=== PATIENT | female | born 1970 | race American Indian/Alaskan Native ===

== ENCOUNTER 2017-08-23 18:04 | Inpatient (IN) | payer BC, OTHER ==
[~2017-08-23] VITALS: Ht 177.8 cm; Wt 133.6 kg
[~2017-08-23 18:04] MED LIST: CARI350T PO; DOCU100C40 PO; HYDR-569 PO; HYDR12.522 PO; NAPR-56 PO; NITR100C11 PO; TELM40TA4 PO
[2017-08-23 19:45] LABS: BASOPHILS % (AUTO) 0.3 % (0-1); EOSINOPHILS # (AUTO) 0.3 X10'3 (0-0.9); EOSINOPHILS % (AUTO) 2.8 % (0-6); HEMATOCRIT 48.5 % (35.0-45.0); HEMOGLOBIN 16.7 g/dl (12.0-16.0); LYMPHOCYTES # (AUTO) 3.1 X10'3 (1.1-4.8); MEAN CORPUSCULAR HEMOGLOBIN 31.2 PG (27.0-31.0); MEAN CORPUSCULAR HGB CONC 34.4 % (33.0-36.5); MEAN CORPUSCULAR VOLUME 90.8 FL (78-98); MEAN PLATELET VOLUME 7.6 FL (7.4-10.4); MONOCYTES # (AUTO) 0.8 X10'3 (0-0.9); MONOCYTES % (AUTO) 6.9 % (2-12); NEUTROPHILS # (AUTO) 6.8 X10'3 (1.8-7.7); PLATELET COUNT 360 X10'3 (140-440); RED BLOOD COUNT 5.34 X10'6 (4.20-5.60); RED CELL DISTRIBUTION WIDTH 13.4 % (11.5-14.5); WHITE BLOOD COUNT 10.9 X10'3 (4.5-11.0)
[2017-08-23 19:51] LABS: PROTHROMBIN TIME 10.1 SECONDS (9.0-12.0)
[2017-08-23 20:01] LABS: ALANINE AMINOTRANSFERASE 34 U/L (12-78); ALBUMIN 3.9 G/DL (3.4-5.0); ALKALINE PHOSPHATASE 98 IU/L (46-116); AMYLASE 28 U/L (25-115); ANION GAP 10 (8-16); ASPARTATE AMINO TRANSFERASE 24 U/L (10-37); BILIRUBIN,TOTAL 0.4 MG/DL (0.1-1.0); BLOOD UREA NITROGEN 18 MG/DL (7-18); BUN/CREATININE RATIO 21.7 (6.6-38.0); CHLORIDE 102 MMOL/L (99-107); CREATININE 0.83 MG/DL (0.40-0.90); GLUCOSE 105 MG/DL (70-104); LIPASE 85 U/L (73-393); POTASSIUM 3.3 MMOL/L (3.5-5.1); SODIUM 142 MMOL/L (135-145); TOTAL CARBON DIOXIDE 29.6 MMOL/L (24-32); TOTAL PROTEIN 7.7 G/DL (6.4-8.2); eGFR 74 ML/MIN
[2017-08-23] MEDS ORDERED: BUPR200T2 PO (20:17)
[2017-08-23] MEDS ORDERED: LOSA25TA96 PO (20:18)
[2017-08-23] MEDS ORDERED: morphine 4 MG/ML inj SYRINge IV ONE ×3 (20:35→23:45)
[2017-08-23] MEDS ORDERED: ondansetron/PF 4mg/2ml inj IV ONE (20:35)
[2017-08-24] VITALS (16 sets, daily range): BP systolic 107–153; BP diastolic 65–92
[2017-08-24] MEDS ORDERED: bisacodyl 10mg suppository rectal RC PRN (00:20)
[2017-08-24] MEDS ORDERED: potassium Cl 20 mEq SR tablet PO PRN ×2 (00:20)
[2017-08-24] MEDS ORDERED: morphine 4 MG/ML inj SYRINge IV PRN ×4 (00:20→18:40)
[2017-08-24] MEDS ORDERED: ipratropium/albuterol 3ml nebule NEB PRN (00:20)
[2017-08-24] MEDS ORDERED: acetaminophen 650mg rectal suppository RC PRN (00:20)
[2017-08-24] MEDS ORDERED: ondansetron/PF 4mg/2ml inj IV PRN ×2 (00:20→18:40)
[2017-08-24] MEDS ORDERED: magnesium 2GM in 50ml NS 50 ML IV PRN (00:20)
[2017-08-24] MEDS ORDERED: potassium Cl 40MEQ/NS 500ml 500 ML IV PRN ×2 (00:20)
[2017-08-24] MEDS ORDERED: magnesium 4gm in 100ml NS 100 ML IV PRN (00:20)
[2017-08-24 00:24] LABS: CLARITY,URINE Clear (Clear); COLOR,URINE Yellow (Yellow); GLUCOSE, URINE Negative (Neg); KETONES,URINE Negative (Neg); LEUKOCYTE ESTERASE ,URINE Trace (Neg); NITRITES, URINE Negative (Neg); OCCULT BLOOD,URINE Negative (Neg); PH,URINE 5.5 (4.8-8.0); PROTEIN,URINE Negative (Neg)
[2017-08-24 00:25] LABS: UA COLLECTION TYPE CLN CATCH MIDSTREAM
[2017-08-24 00:31] LABS: BACTERIA,URINE 3+ /HPF (Neg); MUCUS STRANDS FEW /LPF (Neg); RBC,URINE NONE SEEN /HPF (0-2); SQUAMOUS EPITHELIAL CELL,UR MODERATE /LPF (FEW)
[2017-08-24 00:32] LABS: YEAST FEW /HPF (NEGATIVE)
[2017-08-24] MEDS: piperacillin/tazo 3.375gm/50ml 50 ML IV SCH ×4 (00:46→23:48)
[2017-08-24] MEDS: normal saline 1000ml 1,000 ML IV SCH ×3 (01:02→20:20)
[2017-08-24] MEDS ORDERED: hydrALAZINE 20mg/ml inj. IV PRN (01:15)
[2017-08-24] MEDS ORDERED: LIDOcaine 1% 30ml vial 5 ML in potassium Cl 40MEQ/NS 500ml 500 ML IV PRN (06:45)
[2017-08-24] MEDS: K and/or MAG REPLACEMENT MC SCH (08:00)
[2017-08-24] MEDS: heparin, porcine 5000 units/ml vial SQ SCH ×3 (08:00→23:55)
[2017-08-24] MEDS: nicotine 14mg patch - 24hr TD SCH (08:12)
[2017-08-24] MEDS ORDERED: HYDROmorphone inj. 0.5 MG/0.5 ML DISP.SYRIN IV PRN (10:45)
[2017-08-24] MEDS ORDERED: HYDROmorphone 1 mg/ml syringe IV PRN (10:45)
[2017-08-24] MEDS ORDERED: sincalide inj 0 MCG in normal saline 50ml IV soln 50 ML IV ONE (10:45)
[2017-08-24] MEDS ORDERED: acetaminophen 325mg tablet PO PRN (10:50)
[2017-08-24 11:35] LABS: BASOPHILS % (AUTO) 0.4 % (0-1); EOSINOPHILS # (AUTO) 0.3 X10'3 (0-0.9); EOSINOPHILS % (AUTO) 3.2 % (0-6); HEMATOCRIT 45.8 % (35.0-45.0); HEMOGLOBIN 15.4 g/dl (12.0-16.0); LYMPHOCYTES # (AUTO) 2.4 X10'3 (1.1-4.8); LYMPHOCYTES % (AUTO) 30.7 % (21-51); MEAN CORPUSCULAR HEMOGLOBIN 30.4 PG (27.0-31.0); MEAN CORPUSCULAR HGB CONC 33.6 % (33.0-36.5); MEAN CORPUSCULAR VOLUME 90.5 FL (78-98); MEAN PLATELET VOLUME 7.7 FL (7.4-10.4); MONOCYTES # (AUTO) 0.5 X10'3 (0-0.9); MONOCYTES % (AUTO) 6.9 % (2-12); NEUTROPHILS # (AUTO) 4.7 X10'3 (1.8-7.7); NEUTROPHILS % (AUTO) 58.8 % (42-75); PLATELET COUNT 344 X10'3 (140-440); RED BLOOD COUNT 5.06 X10'6 (4.20-5.60); RED CELL DISTRIBUTION WIDTH 12.3 % (11.5-14.5); WHITE BLOOD COUNT 7.9 X10'3 (4.5-11.0)
[2017-08-24 11:43] LABS: PROTHROMBIN TIME 10.5 SECONDS (9.0-12.0)
[2017-08-24 11:51] LABS: ALANINE AMINOTRANSFERASE 29 U/L (12-78); ALBUMIN 3.1 G/DL (3.4-5.0); ALBUMIN/GLOBULIN RATIO 0.9 (1.1-1.5); ALKALINE PHOSPHATASE 86 IU/L (46-116); ANION GAP 7 (8-16); ASPARTATE AMINO TRANSFERASE 23 U/L (10-37); BILIRUBIN,TOTAL 0.6 MG/DL (0.1-1.0); BLOOD UREA NITROGEN 15 MG/DL (7-18); BUN/CREATININE RATIO 17.6 (6.6-38.0); CALCIUM 8.3 MG/DL (8.5-10.1); CHLORIDE 106 MMOL/L (99-107); CREATININE 0.85 MG/DL (0.40-0.90); GLUCOSE 89 MG/DL (70-104); POTASSIUM 3.6 MMOL/L (3.5-5.1); SODIUM 144 MMOL/L (135-145); TOTAL CARBON DIOXIDE 31.5 MMOL/L (24-32); TOTAL PROTEIN 6.5 G/DL (6.4-8.2); eGFR 72 ML/MIN
[2017-08-24] MEDS ORDERED: ketorolac trometh. 30mg/ml inj. IV SCH (14:00)
[2017-08-24] MEDS ORDERED: ceFAZolin 1000mg inj ONE (18:36)
[2017-08-24] MEDS ORDERED: BUPIVAcaine/PF 2.5 mg/ml (0.25%) 30ml vial ONE (18:36)
[2017-08-24] MEDS ORDERED: ringers solution, lacted 1,000 ML IV SCH (18:37)
[2017-08-24] MEDS ORDERED: meperidine/PF 50mg/ml syringe IV PRN ×3 (18:40)
[2017-08-24] MEDS ORDERED: proCHLORperazine 10 MG/2 ml inj IV PRN (18:40)
[2017-08-24] MEDS ORDERED: midazolam 2 mg/2 ml injection ONE (18:54)
[2017-08-24] MEDS ORDERED: fentaNYL/PF 50MCG/1 ML 2ML syringe ONE ×2 (18:54→19:22)
[2017-08-24] MEDS ORDERED: succinylcholine 20mg/ml inj IV ONE (19:06)
[2017-08-24] MEDS ORDERED: rocuronium 10mg/ml inj IV ONE (19:06)
[2017-08-24] MEDS ORDERED: dexamethasone sod phosphate 4mg/ml inj. ONE (19:06)
[2017-08-24] MEDS ORDERED: LIDOcaine 2% (20mg/ml) 5ml vial ONE (19:06)
[2017-08-24] MEDS ORDERED: propofol inj 20 ML IV ONE (19:06)
[2017-08-24] MEDS ORDERED: ondansetron/PF 4mg/2ml inj ONE (19:27)
[2017-08-24] MEDS ORDERED: neostigmine methylsulfate 1 MG/ML 10ml vial ONE (19:27)
[2017-08-24] MEDS ORDERED: glycopyrrolate 0.2mg/ml inj ONE (19:27)
[2017-08-24] MEDS ORDERED: HYDROmorphone inj. 0.5 MG/0.5 ML DISP.SYRIN ONE ×2 (20:29→20:58)
[2017-08-25] VITALS: BP 111/72
[2017-08-25 00:07] VITALS: BP 112/64
[2017-08-25] MEDS ORDERED: HYDROmorphone inj. 0.5 MG/0.5 ML DISP.SYRIN ONE (02:31)
[2017-08-25] MEDS: normal saline 1000ml 1,000 ML IV SCH (02:37)
[2017-08-25 05:14] VITALS: BP 140/79
[2017-08-25 05:45] LABS: BASOPHILS % (AUTO) 0.1 % (0-1); EOSINOPHILS # (AUTO) 0.2 X10'3 (0-0.9); EOSINOPHILS % (AUTO) 1.4 % (0-6); HEMATOCRIT 46.5 % (35.0-45.0); HEMOGLOBIN 16.5 g/dl (12.0-16.0); LYMPHOCYTES # (AUTO) 0.9 X10'3 (1.1-4.8); LYMPHOCYTES % (AUTO) 7.5 % (21-51); MEAN CORPUSCULAR HEMOGLOBIN 31.7 PG (27.0-31.0); MEAN CORPUSCULAR HGB CONC 35.4 % (33.0-36.5); MEAN CORPUSCULAR VOLUME 89.6 FL (78-98); MEAN PLATELET VOLUME 7.8 FL (7.4-10.4); MONOCYTES # (AUTO) 0.2 X10'3 (0-0.9); MONOCYTES % (AUTO) 1.6 % (2-12); NEUTROPHILS # (AUTO) 11.3 X10'3 (1.8-7.7); NEUTROPHILS % (AUTO) 89.4 % (42-75); PLATELET COUNT 357 X10'3 (140-440); RED CELL DISTRIBUTION WIDTH 13.4 % (11.5-14.5); WHITE BLOOD COUNT 12.6 X10'3 (4.5-11.0)
[2017-08-25 06:06] LABS: ALANINE AMINOTRANSFERASE 57 U/L (12-78); ALBUMIN 3.5 G/DL (3.4-5.0); ALBUMIN/GLOBULIN RATIO 0.9 (1.1-1.5); ALKALINE PHOSPHATASE 99 IU/L (46-116); ANION GAP 10 (8-16); ASPARTATE AMINO TRANSFERASE 62 U/L (10-37); BILIRUBIN,TOTAL 0.5 MG/DL (0.1-1.0); BLOOD UREA NITROGEN 15 MG/DL (7-18); CALCIUM 8.3 MG/DL (8.5-10.1); CHLORIDE 106 MMOL/L (99-107); CREATININE 0.94 MG/DL (0.40-0.90); GLUCOSE 115 MG/DL (70-104); MAGNESIUM 2.2 MG/DL (1.5-2.4); POTASSIUM 4.2 MMOL/L (3.5-5.1); SODIUM 143 MMOL/L (135-145); TOTAL CARBON DIOXIDE 26.6 MMOL/L (24-32); TOTAL PROTEIN 7.5 G/DL (6.4-8.2); eGFR 64 ML/MIN
[2017-08-25] MEDS: piperacillin/tazo 3.375gm/50ml 50 ML IV SCH (07:14)
[2017-08-25] MEDS: heparin, porcine 5000 units/ml vial SQ SCH (07:16)
[2017-08-25] MEDS: nicotine 14mg patch - 24hr TD SCH ×3 (07:17→10:01)
[2017-08-25 07:30] VITALS: BP 123/74
[2017-08-25] MEDS: K and/or MAG REPLACEMENT MC SCH (08:00)
[2017-08-25] MEDS ORDERED: HYDROcodone/acetaminophen 10/325mg tab PO PRN (09:20)
[2017-08-25] MEDS ORDERED: NICO-631 TD (11:04)
== END 2017-08-25 12:31 | disposition home or self-care (01) | DRG 418 ==
LOC: ER 18:05 → ED HOLD 08-24 00:20 → SUR 3N 08-24 01:20
PROVIDERS: ADMIT Family Medicine; ATTEND Family Medicine
PROC: 0DNU4ZZ Release Omentum, Percutaneous Endoscopic Approach (ICD-10-PCS; 2017-08-24)
PROC: 0FT44ZZ Resection of Gallbladder, Percutaneous Endoscopic Approach (ICD-10-PCS; principal; 2017-08-24 18:54)
DX: K80.62 Calculus of gallbladder and bile duct with acute cholecystitis without obstruction (principal); N17.9 Acute kidney failure, unspecified; Z68.41 Body mass index [BMI] 40.0-44.9, adult; F43.10 Post-traumatic stress disorder, unspecified; E87.6 Hypokalemia; F17.210 Nicotine dependence, cigarettes, uncomplicated; E66.9 Obesity, unspecified; E11.9 Type 2 diabetes mellitus without complications; I10 Essential (primary) hypertension; J45.909 Unspecified asthma, uncomplicated; K66.0 Peritoneal adhesions (postprocedural) (postinfection); F32.9 Major depressive disorder, single episode, unspecified; F41.9 Anxiety disorder, unspecified; R74.0 Nonspecific elevation of levels of transaminase and lactic acid dehydrogenase [LDH]; Z91.040 Latex allergy status; Z91.018 Allergy to other foods; Z79.899 Other long term (current) drug therapy
CPT/HCPCS: 96374; 96375; 96376; 99285; Z7506; 36415; 76700; 80053; 81001; 82150; 83036; 83690; 83735; 85025; 85610; 87070; 87088; 94667; 94760; A7000; J0330; J0690; J1100; J1170; J1644; J2001; J2175; J2250; J2270; J2405; J2543; J2704; J2710; J3010; J3480; J3490; J7030; J7120

== ENCOUNTER 2018-08-27 19:16 | Emergency (ER) | payer BC, OTHER ==
[~2018-08-27] VITALS: Ht 177.8 cm; Wt 156.3 kg
[~2018-08-27 19:16] MED LIST changes: +BUPR200T2 PO; -CARI350T PO; -HYDR-569 PO; +LOSA25TA96 PO; -NAPR-56 PO; +NICO-631 TD; -NITR100C11 PO; +ONDA4TAB12 PO; -TELM40TA4 PO
[2018-08-27 19:22] VITALS: BP 203/95
[2018-08-27 19:54] LABS: BASOPHILS # (AUTO) 0.1 X10'3 (0-0.2); BASOPHILS % (AUTO) 0.4 % (0-1); EOSINOPHILS # (AUTO) 0.2 X10'3 (0-0.9); EOSINOPHILS % (AUTO) 1.8 % (0-6); HEMATOCRIT 46.2 % (35.0-45.0); HEMOGLOBIN 15.7 g/dl (12.0-16.0); LYMPHOCYTES # (AUTO) 3.3 X10'3 (1.1-4.8); LYMPHOCYTES % (AUTO) 24.6 % (21-51); MEAN CORPUSCULAR VOLUME 91.1 FL (78-98); MEAN PLATELET VOLUME 7.4 FL (7.4-10.4); MONOCYTES # (AUTO) 0.8 X10'3 (0-0.9); MONOCYTES % (AUTO) 6.4 % (2-12); NEUTROPHILS # (AUTO) 8.9 X10'3 (1.8-7.7); NEUTROPHILS % (AUTO) 66.8 % (42-75); PLATELET COUNT 387 X10'3 (140-440); RED BLOOD COUNT 5.07 X10'6 (4.20-5.60); WHITE BLOOD COUNT 13.3 X10'3 (4.5-11.0)
[2018-08-27 19:54] LABS: CLARITY,URINE SLIGHTLY CLOUDY (Clear); COLOR,URINE YELLOW (Yellow); GLUCOSE, URINE NEGATIVE (Neg); KETONES,URINE NEGATIVE (Neg); LEUKOCYTE ESTERASE ,URINE NEGATIVE (Neg); NITRITES, URINE NEGATIVE (Neg); OCCULT BLOOD,URINE TRACE-LYSED (Neg); PROTEIN,URINE NEGATIVE (Neg); UROBILINOGEN,URINE 0.2 E.U/dL (0.2-1.0)
[2018-08-27 19:55] LABS: UA COLLECTION TYPE CLN CATCH MIDSTREAM
[2018-08-27 19:57] LABS: URINE HCG NEGATIVE (NEG)
[2018-08-27 20:02] LABS: ALANINE AMINOTRANSFERASE 29 U/L (12-78); ALBUMIN 3.6 G/DL (3.4-5.0); ALKALINE PHOSPHATASE 96 IU/L (46-116); ANION GAP 8 (8-16); ASPARTATE AMINO TRANSFERASE 21 U/L (10-37); BILIRUBIN,TOTAL 0.2 MG/DL (0.1-1.0); BLOOD UREA NITROGEN 19 MG/DL (7-18); BUN/CREATININE RATIO 20.9 (6.6-38.0); CALCIUM 9.1 MG/DL (8.5-10.1); CHLORIDE 105 MMOL/L (99-107); CREATININE 0.91 MG/DL (0.40-0.90); GLUCOSE 114 MG/DL (70-104); LIPASE 122 U/L (73-393); POTASSIUM 3.5 MMOL/L (3.5-5.1); SODIUM 142 MMOL/L (135-145); TOTAL CARBON DIOXIDE 28.8 MMOL/L (24-32); TOTAL PROTEIN 7.2 G/DL (6.4-8.2); eGFR 66 ML/MIN
[2018-08-27 20:05] LABS: BACTERIA,URINE FEW /HPF (Neg); MUCUS STRANDS MANY /LPF (Neg); RBC,URINE 0-2 /HPF (0-2); SQUAMOUS EPITHELIAL CELL,UR MANY /LPF (FEW); WBC,URINE 0-4 /HPF (0-4)
== END 2018-08-28 00:40 | disposition home or self-care (01) ==
LOC: ER 19:17
DX: R10.84 Generalized abdominal pain (principal); R19.7 Diarrhea, unspecified; R11.2 Nausea with vomiting, unspecified; I10 Essential (primary) hypertension; J45.909 Unspecified asthma, uncomplicated; E11.9 Type 2 diabetes mellitus without complications; Z90.49 Acquired absence of other specified parts of digestive tract; Z90.710 Acquired absence of both cervix and uterus; Z98.890 Other specified postprocedural states; Z91.040 Latex allergy status; Z79.899 Other long term (current) drug therapy
CPT/HCPCS: 36415; 74176; 80053; 81001; 81025; 83690; 85025; 85610; 99284

== ENCOUNTER 2019-05-18 15:19 | Emergency (ER) | payer BC ==
[~2019-05-18] VITALS: Ht 177.8 cm; Wt 115.9 kg
[~2019-05-18 15:19] MED LIST changes: +DIPH25CA83 PO
[2019-05-18 15:26] VITALS: BP 153/99
[2019-05-18] MEDS ORDERED: METH4TAB81 PO (16:55)
== END 2019-05-18 17:26 | disposition home or self-care (01) ==
LOC: ER 15:21
DX: M75.81 Other shoulder lesions, right shoulder (principal); I10 Essential (primary) hypertension; J45.909 Unspecified asthma, uncomplicated; E11.9 Type 2 diabetes mellitus without complications; F41.9 Anxiety disorder, unspecified; F32.9 Major depressive disorder, single episode, unspecified; F10.99 Alcohol use, unspecified with unspecified alcohol-induced disorder; Z90.49 Acquired absence of other specified parts of digestive tract; Z98.890 Other specified postprocedural states; Z88.1 Allergy status to other antibiotic agents; Z91.040 Latex allergy status; Z88.8 Allergy status to other drugs, medicaments and biological substances; Z79.899 Other long term (current) drug therapy; Y90.9 Presence of alcohol in blood, level not specified
CPT/HCPCS: 73030; 99283

== ENCOUNTER 2019-12-26 18:56 | Emergency (ER) | payer BC, OTHER ==
[~2019-12-26] VITALS: Ht 177.8 cm; Wt 87.3 kg
[~2019-12-26 18:56] MED LIST changes: +METH4TAB81 PO
[2019-12-26 18:59] VITALS: BP 144/95
[2019-12-26] MEDS ORDERED: piperacillin/tazo 3.375gm/50ml 50 ML IV ONE (19:25)
[2019-12-26] MEDS ORDERED: LIDOcaine 1% W/epiNEPHrine 1:100,000 20ml vial SQ ONE (19:30)
[2019-12-26 19:44] LABS: BASOPHILS # (AUTO) 0.1 X10'3 (0-0.2); BASOPHILS % (AUTO) 0.7 % (0-1); EOSINOPHILS # (AUTO) 0.3 X10'3 (0-0.9); EOSINOPHILS % (AUTO) 2.7 % (0-6); HEMATOCRIT 46.4 % (35.0-45.0); HEMOGLOBIN 16.4 g/dl (12.0-16.0); LYMPHOCYTES # (AUTO) 3.6 X10'3 (1.1-4.8); LYMPHOCYTES % (AUTO) 32.5 % (21-51); MEAN CORPUSCULAR HEMOGLOBIN 33.4 PG (27.0-31.0); MEAN CORPUSCULAR HGB CONC 35.4 g/dL (33.0-36.5); MEAN CORPUSCULAR VOLUME 94.2 FL (78-98); MEAN PLATELET VOLUME 7.3 FL (7.4-10.4); MONOCYTES # (AUTO) 0.7 X10'3 (0-0.9); MONOCYTES % (AUTO) 6.4 % (2-12); NEUTROPHILS # (AUTO) 6.3 X10'3 (1.8-7.7); NEUTROPHILS % (AUTO) 57.7 % (42-75); PLATELET COUNT 303 X10'3 (140-440); RED BLOOD COUNT 4.93 X10'6 (4.20-5.60)
[2019-12-26 20:00] LABS: ALANINE AMINOTRANSFERASE 21 U/L (12-78); ALBUMIN 3.6 G/DL (3.4-5.0); ALBUMIN/GLOBULIN RATIO 1.1 (1.1-1.5); ALKALINE PHOSPHATASE 80 IU/L (46-116); ANION GAP 4 (8-16); ASPARTATE AMINO TRANSFERASE 14 U/L (10-37); BILIRUBIN,TOTAL 0.3 MG/DL (0.1-1.0); BLOOD UREA NITROGEN 17 MG/DL (7-18); BUN/CREATININE RATIO 23.6 (6.6-38.0); CALCIUM 8.6 MG/DL (8.5-10.1); CHLORIDE 106 MMOL/L (99-107); CREATININE 0.72 MG/DL (0.40-0.90); GLUCOSE 88 MG/DL (70-104); POTASSIUM 3.5 MMOL/L (3.5-5.1); SODIUM 142 MMOL/L (135-145); TOTAL CARBON DIOXIDE 31.9 MMOL/L (24-32); TOTAL PROTEIN 6.8 G/DL (6.4-8.2); eGFR 86 ML/MIN
[2019-12-26] MEDS ORDERED: HYDR-4353 PO (20:39)
[2019-12-26] MEDS ORDERED: SULF1TAB49 PO (20:39)
[2019-12-26] MEDS ORDERED: ibuprofen tablet 400 MG TABLET PO ONE (20:40)
== END 2019-12-26 21:12 | disposition home or self-care (01) ==
LOC: ER 18:57
DX: L02.512 Cutaneous abscess of left hand (principal); I10 Essential (primary) hypertension; J45.909 Unspecified asthma, uncomplicated; E11.9 Type 2 diabetes mellitus without complications; F41.9 Anxiety disorder, unspecified; F32.9 Major depressive disorder, single episode, unspecified; Z90.49 Acquired absence of other specified parts of digestive tract; Z98.890 Other specified postprocedural states; Z72.89 Other problems related to lifestyle; Z91.040 Latex allergy status; Z79.899 Other long term (current) drug therapy
CPT/HCPCS: 26010; 36415; 80053; 85025; 96365; 99284; J2543

== ENCOUNTER 2020-04-11 09:56 | Emergency (ER) | payer BC, OTHER ==
[~2020-04-11] VITALS: Ht 177.8 cm; Wt 80.0 kg
[2020-04-11 11:32] VITALS: BP 139/91
== END 2020-04-11 11:33 | disposition home or self-care (01) ==
LOC: ER 09:57
DX: U07.1 COVID-19 (principal); R09.89 Other specified symptoms and signs involving the circulatory and respiratory systems; R53.83 Other fatigue; R43.8 Other disturbances of smell and taste; R06.02 Shortness of breath; R05 Cough; I10 Essential (primary) hypertension; J45.909 Unspecified asthma, uncomplicated; E11.9 Type 2 diabetes mellitus without complications; F41.9 Anxiety disorder, unspecified; F32.9 Major depressive disorder, single episode, unspecified; Z90.89 Acquired absence of other organs; Z90.49 Acquired absence of other specified parts of digestive tract; Z98.890 Other specified postprocedural states; Z72.89 Other problems related to lifestyle; Z91.040 Latex allergy status; Z79.899 Other long term (current) drug therapy
CPT/HCPCS: 93005; 99283

== ENCOUNTER 2021-12-11 08:43 | Emergency (ER) | payer BC, OTHER ==
[~2021-12-11] VITALS: Ht 177.8 cm; Wt 75.5 kg
[2021-12-11 09:47] LABS: CLARITY,URINE CLEAR (Clear); COLOR,URINE YELLOW (Yellow); GLUCOSE, URINE NEGATIVE (Neg); KETONES,URINE NEGATIVE (Neg); LEUKOCYTE ESTERASE ,URINE NEGATIVE (Neg); NITRITES, URINE NEGATIVE (Neg); OCCULT BLOOD,URINE NEGATIVE (Neg); PROTEIN,URINE NEGATIVE (Neg); UROBILINOGEN,URINE 0.2 E.U/dL (0.2-1.0)
[2021-12-11 09:49] LABS: UA COLLECTION TYPE CLN CATCH MIDSTREAM
[2021-12-11 09:51] LABS: BASOPHILS % (AUTO) 0.3 % (0-1); EOSINOPHILS # (AUTO) 0.2 X10'3 (0-0.9); EOSINOPHILS % (AUTO) 2.2 % (0-6); HEMATOCRIT 45.1 % (35.0-45.0); HEMOGLOBIN 15.8 g/dl (12.0-16.0); LYMPHOCYTES # (AUTO) 2.8 X10'3 (1.1-4.8); LYMPHOCYTES % (AUTO) 35.8 % (21-51); MEAN CORPUSCULAR HGB CONC 35.1 g/dL (33.0-36.5); MEAN CORPUSCULAR VOLUME 93.8 FL (78-98); MONOCYTES # (AUTO) 0.5 X10'3 (0-0.9); MONOCYTES % (AUTO) 6.9 % (2-12); NEUTROPHILS # (AUTO) 4.3 X10'3 (1.8-7.7); NEUTROPHILS % (AUTO) 54.8 % (42-75); PLATELET COUNT 293 X10'3 (140-440); RED BLOOD COUNT 4.81 X10'6 (4.20-5.60); RED CELL DISTRIBUTION WIDTH 12.7 % (11.5-14.5); WHITE BLOOD COUNT 7.9 X10'3 (4.5-11.0)
[2021-12-11 10:07] LABS: ALANINE AMINOTRANSFERASE 25 U/L (12-78); ALBUMIN 3.9 G/DL (3.4-5.0); ALBUMIN/GLOBULIN RATIO 1.2 (1.1-1.5); ALKALINE PHOSPHATASE 73 IU/L (46-116); ANION GAP 6 (8-16); ASPARTATE AMINO TRANSFERASE 18 U/L (10-37); BILIRUBIN,TOTAL 0.4 MG/DL (0.1-1.0); BLOOD UREA NITROGEN 18 MG/DL (7-18); BUN/CREATININE RATIO 26.9 (6.6-38.0); CALCIUM 8.8 MG/DL (8.5-10.1); CHLORIDE 105 MMOL/L (99-107); CREATININE 0.67 MG/DL (0.40-0.90); GLUCOSE 95 MG/DL (70-104); LIPASE 163 U/L (73-393); SODIUM 141 MMOL/L (135-145); TOTAL CARBON DIOXIDE 30.4 MMOL/L (24-32); TOTAL PROTEIN 7.1 G/DL (6.4-8.2); eGFR > 90 ML/MIN
[2021-12-11] MEDS ORDERED: HYDR-3965 PO (11:35)
[2021-12-11] MEDS ORDERED: GABA-530 PO (11:35)
[2021-12-11 11:44] VITALS: BP 119/84
== END 2021-12-11 11:47 | disposition home or self-care (01) ==
LOC: ER 08:43
DX: R10.32 Left lower quadrant pain (principal); M54.50 Low back pain, unspecified; I10 Essential (primary) hypertension; J45.909 Unspecified asthma, uncomplicated; E11.9 Type 2 diabetes mellitus without complications; Z91.040 Latex allergy status; Z98.890 Other specified postprocedural states; Z90.49 Acquired absence of other specified parts of digestive tract
CPT/HCPCS: 36415; 80053; 81003; 83690; 85025; 99283

== ENCOUNTER 2022-12-19 18:35 | Emergency (ER) | payer BC, OTHER ==
[~2022-12-19] VITALS: Ht 177.8 cm; Wt 86.4 kg
[~2022-12-19 18:35] MED LIST changes: +GABA-530 PO
[2022-12-19 18:56] VITALS: BP 135/99; PULSE 73; RESP 16; TEMP 99.3; O2SAT 98
[2022-12-19 19:23] LABS: BASOPHILS # (AUTO) 0.1 X10'3 (0-0.2); BASOPHILS % (AUTO) 0.7 % (0-1); EOSINOPHILS # (AUTO) 0.2 X10'3 (0-0.9); EOSINOPHILS % (AUTO) 1.9 % (0-6); HEMATOCRIT 44.6 % (35.0-45.0); HEMOGLOBIN 15.6 g/dl (12.0-16.0); LYMPHOCYTES % (AUTO) 31.3 % (21-51); MEAN CORPUSCULAR HGB CONC 34.9 g/dL (33.0-36.5); MEAN CORPUSCULAR VOLUME 94.5 FL (78-98); MEAN PLATELET VOLUME 6.9 FL (7.4-10.4); MONOCYTES # (AUTO) 0.6 X10'3 (0-0.9); MONOCYTES % (AUTO) 6.6 % (2-12); NEUTROPHILS # (AUTO) 5.6 X10'3 (1.8-7.7); NEUTROPHILS % (AUTO) 59.5 % (42-75); PLATELET COUNT 283 X10'3 (140-440); RED BLOOD COUNT 4.72 X10'6 (4.20-5.60); RED CELL DISTRIBUTION WIDTH 12.7 % (11.5-14.5); WHITE BLOOD COUNT 9.4 X10'3 (4.5-11.0)
[2022-12-19 19:39] LABS: ALANINE AMINOTRANSFERASE 22 U/L (12-78); ALBUMIN/GLOBULIN RATIO 1.3 (1.1-1.5); ALKALINE PHOSPHATASE 82 IU/L (46-116); ANION GAP 10 (8-16); ASPARTATE AMINO TRANSFERASE 24 U/L (10-37); BILIRUBIN,TOTAL 0.3 MG/DL (0.1-1.0); BLOOD UREA NITROGEN 15 MG/DL (7-18); BUN/CREATININE RATIO 21.7 (10.0-20.0); CALCIUM 9.2 MG/DL (8.5-10.1); CHLORIDE 103 MMOL/L (99-107); CREATININE 0.69 MG/DL (0.40-0.90); GLUCOSE 96 MG/DL (70-104); POTASSIUM 3.7 MMOL/L (3.5-5.1); SODIUM 142 MMOL/L (135-145); TOTAL CARBON DIOXIDE 29.2 MMOL/L (24-32); TOTAL PROTEIN 7.1 G/DL (6.4-8.2); eGFR 89 ML/MIN
== END 2022-12-20 02:11 | disposition home or self-care (01) ==
LOC: ER 18:36
DX: R07.89 Other chest pain (principal); M54.9 Dorsalgia, unspecified; I10 Essential (primary) hypertension; J45.909 Unspecified asthma, uncomplicated; E11.9 Type 2 diabetes mellitus without complications; Z87.81 Personal history of (healed) traumatic fracture; Z90.49 Acquired absence of other specified parts of digestive tract; Z98.84 Bariatric surgery status; Z72.89 Other problems related to lifestyle; Z91.040 Latex allergy status; Z79.899 Other long term (current) drug therapy
CPT/HCPCS: 36415; 71045; 80053; 83880; 84484; 85025; 93005; 99285

== ENCOUNTER 2024-12-20 09:25 | Emergency (ER) | payer BC, OTHER ==
[~2024-12-20] VITALS: Ht 177.8 cm; Wt 101.3 kg
[~2024-12-20 09:25] MED LIST changes: +LOSA-415 PO; -LOSA25TA96 PO; +ONDA-243 PO; -ONDA4TAB12 PO
[2024-12-20 09:31] VITALS: TEMP 98.1
--- NOTE | 2024-12-20 09:38 | Physician Documentation ---
History of Present Illness Chief Complaint: Head Pain Stated Complaint: HIT HEAD Primary Medical Doctor: JOI COLEMAN [facility] 54-year-old female that presents to the emergency department for evaluation of a head injury that she sustained yesterday while at the [email or web address]. Patient re ports that she was at the [employer] [place] went under hit her head against the bottom of the pool area did not lose consciousness but has had a headache since then in the little bit of nausea. Her neck is also tender. Denies taking blood thinners in any other significant past medical history other than high blood pressure at this time. Medication Reconciliation Allergies: Coded Allergies: latex (Verified Allergy, Intermediate, eyes swell, 12/20/24) Uncoded Allergies: ACULATE (Allergy, Severe, facial swelling, 03/29/11) BAZIL NUTS (Allergy, Severe, airway constriction, 03/29/11) Scheduled Bupropion Hcl (Wellbutrin Sr), 200 MG PO DAILY, (Reported) Docusate Sodium (Docusate Sodium), 100 MG PO BID Gabapentin (Gabapentin), 1 CAP PO Q8H Hydrochlorothiazide* (Microzide*), 25 MG PO DAILY, (Reported) Losartan Potassium* (Cozaar*), 1 TAB PO DAILY, (Reported) Methylprednisolone (Medrol Dosepak), 4 MG PO DAILY Nicotine 14 MG Patch* (Habitrol 14 MG Patch*), 1 PATCH TD DAILY Scheduled PRN Diphenhydramine Hcl (Benadryl), 25 MG PO Q6H PRN PRN for itching ONDANSETRON ODT 4mg tablet (Ondansetron Odt), 1 TABLET PO Q6H PRN for nausea/vomiting Past Medical History Past Medical History: Hypertension, Asthma, Diabetes, Extremity Fracture, Anxiety, Depression Past Surgical History: appendectomy, cholecystectomy, gastric bypass, orthopedic surgeries, other Other Past Surgical History: Gastric Sleeve Patient History: FH: depression FH: diabetes mellitus paternal grandmother FH: leukemia maternal grandfather FH: stroke Alcohol Use: Occasionally Drug Use: none Lives In: Home Occupation: employed, other Review of Systems ROS As stated above in the HPI, otherwise all systems are reviewed and negative. Physical Exam Physical Exam VITALS: Reviewed and as above. GENERAL: Alert, no apparent distress. HEENT: Normocephalic, atraumatic, PERRL, EOMI, dry mucosa, no erythema RESPIRATORY: Lungs clear, normal breath sounds, no respiratory distress. CHEST: No accessory muscle use, no retractions CV: Regular rate, rhythm, no edema, no murmur, No: JVD GI: Soft, non-tender, bowels sounds present, no rebound, guarding, or rigidity BACK: No CVA tenderness, or swelling MUSCULOSKELETAL No deformities, no edema SKIN: Warm and dry, no rash NEURO: Oriented x4, No motor or sensory deficit PSYCH: Normal mood and affect, no agitation Medical Decision Making Findings When evaluated in the emergency department for head strike she sustained yesterday [facility] the [facility]. Laboratory diagnostics and radiologic imaging are all reassuring at this time. Patient will follow up with primary care provider if any residual symptoms. Patient will return to the emergency department if she has any worsening of her current symptoms nausea or vomiting severe headache pressure her any of the other additional. Symptoms we discussed here today. Differential Dx:Considerations: Include: AAA, -Complete, - Incomplete, -Inevitable, -Missed, -Threatened, Abruptio placentae, Angina/WA, Aortic dissection, Appendicitis, Bowel obstruction, Cholangitis, Cholelithasis, Constipation, Diverticular disease, Esophageal rup ture, Esophagitis, Gastritis/PUD, Gastroenteritis, GI hemorrhage, Hernia, Hepatitis, Inflammatory BD, Ischemic bowel, Ovarian cyst/torsion, Pancreatitis, PID, Porphyria, Trauma, intraabdominal, Urinary obstruction, Urinary tract infection, Urolithiasis, Other Departure Disposition: 01 HOME / SELF CARE / HOMELESS Impression: Primary Impression: Headache Condition: Stable Additional Instructions: Today you were evaluated for head shakes his hand yesterday. Diagnostics and imaging were negative for any abnormalities or injury at the time. Tylenol and ibuprofen as needed for discomfort. Your primary care provider as needed. Please return to the emergency department if you have any worsening or recurrent symptoms or any additional concerning symptoms i.e. severe headache visual changes nausea vomiting, or any of the other symptoms were discussed here today. Departure Forms: Excuse form Work or School Excused From: Work Excuse beginning now through the following date: Dec 20, 2024 May Return but still avoid physical Activity from now until: Dec 29, 2024 May Return to full physical activity as of: Dec 22, 2024 Referrals: NO PRIMARY CARE PROVIDER (PCP) Education Educated: Patient Educated regarding: treatment, need for follow up Signature Scribe Signature: A Attestation: Scribed for Antonette Seo by MINE Teague . 12/22/24 12:43 ANTONETTE SEO Dec 20, 2024 09:38
[2024-12-20 10:10] VITALS: PULSE 65; RESP 16
--- NOTE | 2024-12-20 10:20 | RADIOLOGY REPORT ---
EXAM: CT CT HEAD HISTORY: HEADSTRIKE COMPARISON: None TECHNIQUE: Noncontrast axial CT images of the head were performed. Sagittal and coronal reformatted i mages were obtained. This CT exam was performed using 1 or more of the following dose reduction techn iques: Automated exposure control, adjustment of the mA and/or kv according to patient size, or the u se of iterative reconstruction techniques. Radiation Dose: CTDI volume is 57.22 mGy. Dose-length product is 1047.54 mGy*cm FINDINGS: No intracranial hemorrhage, mass, midline shift, hydrocephalus, or evidence of acute large vessel inf arct. Partially empty sella is noted. There is mild mucosal thickening throughout the paranasal sinus es, with sparing of the right frontal sinus. The bilateral mastoid air cells and middle ear spaces ar e clear. No cranial fracture or scalp edema. IMPRESSION: 1. No acute intracranial process. 2. Mild pansinus disease with sparing of the right frontal sinus.
--- NOTE | 2024-12-20 10:21 | RADIOLOGY REPORT ---
EXAM: CT CT CERVICAL SPINE INDICATION: HEADSTRIKE EXAM DATE: 12/20/2024 09:58 AM COMPARISON: None TECHNIQUE: Multiple axial CT images of the cervical spine were obtained using bone algorithm. Axial a nd coronal reformatting was done. Bone and soft tissue windows were reviewed. Radiation Dose Information: CT Dose: CTDI volume is 20 mGy. Dose-length product is 447 mGy*cm FINDINGS: The cervical alignment is intact. No acute cervical spine fracture is identified. The vertebral body heights are intact. No suspicious osseous lesions are identified. Multilevel posterior disc osteophyte complex with moderate central canal narrowing at C5-6 and severe bilateral neural foramina narrowing. Facet and uncinate spondylosis. There is no prevertebral soft tissue swelling. IMPRESSION: No evidence of acute cervical spine fracture or traumatic malalignment. All CT scans at this medical facility are performed using dose modulation techniques as appropriate t o a performed exam including the following: Automated exposure control was utilized; Adjustment of th e MA And/or KV according to patient size; And use of iterative reconstruction technique.
[2024-12-20 10:38] LABS: MEAN PLATELET VOLUME 7.0 FL (7.4-10.4); RED CELL DISTRIBUTION WIDTH 16.2 % (11.5-14.5)
[2024-12-20 10:45] LABS: CREATININE 0.73 MG/DL (0.40-0.90); TOTAL CARBON DIOXIDE 30.1 MMOL/L (24-32); eCRCL 95 ML/MIN; eGFR 83 ML/MIN
[2024-12-20 10:52] VITALS: BP 132/78; O2SAT 96
== END 2024-12-20 11:11 | disposition home or self-care (01) ==
LOC: ER 09:25
DX: R51.9 Headache, unspecified (principal); R11.0 Nausea; E11.9 Type 2 diabetes mellitus without complications; I10 Essential (primary) hypertension; F41.9 Anxiety disorder, unspecified; F32.A Depression, unspecified; J45.909 Unspecified asthma, uncomplicated; Z88.8 Allergy status to other drugs, medicaments and biological substances; Z90.49 Acquired absence of other specified parts of digestive tract; Z98.84 Bariatric surgery status
CPT/HCPCS: 36415; 70450; 72125; 80053; 85025; 99284